=== PATIENT | female | born 1975 | race Caucasian/White ===

== ENCOUNTER 2023-12-13 10:04 | Day surgery (SDC) | payer OTHER ==
[2023-12-13] MEDS: FERRIC CARBOXYMALTOSE 750 MG in SODIUM CHLORIDE 250 ML IVPB ONE (10:06)
[2023-12-13 11:52] VITALS: RESP 18; TEMP 98.2
[2023-12-13 11:56] VITALS: BP 133/78; PULSE 64
== END 2023-12-13 11:15 | disposition home or self-care (01) ==
LOC: JONCNONCHE 10:04 → J7W 10:09 → JONCNONCHE 11:15
PROVIDERS: ATTEND Internal Medicine Hematology & Oncology
PROC: 3E033GC Introduction of Other Therapeutic Substance into Peripheral Vein, Percutaneous Approach (ICD-10-PCS; principal; 2023-12-13)
DX: D50.9 Iron deficiency anemia, unspecified (principal)
CPT/HCPCS: 96365; J1439

== ENCOUNTER 2023-12-20 09:49 | Day surgery (SDC) | payer OTHER ==
[2023-12-20] MEDS: FERRIC CARBOXYMALTOSE 750 MG in SODIUM CHLORIDE 250 ML IVPB ONE (10:10)
[2023-12-20 17:24] VITALS: BP 147/86; PULSE 77; RESP 16; TEMP 98.3
== END 2023-12-20 17:39 | disposition home or self-care (01) ==
LOC: J7W 09:49 → JONCNONCHE 09:49
PROVIDERS: ATTEND Internal Medicine Hematology & Oncology
PROC: 3E033GC Introduction of Other Therapeutic Substance into Peripheral Vein, Percutaneous Approach (ICD-10-PCS; principal; 2023-12-20)
DX: D50.9 Iron deficiency anemia, unspecified (principal)
CPT/HCPCS: 96365; J1439